=== PATIENT | male | born 1960 | race Caucasian/White ===

== ENCOUNTER 2019-06-22 15:00 | Outpatient (RCR) | payer BC, SELFPAY ==
[2019-06-04 12:24] VITALS: PULSE 63
--- NOTE | 2019-06-24 09:44 | PCCPR ---
Program is temporarily suspended due to COVID outbreak.
--- NOTE | 2019-07-01 13:04 | PCCPR ---
Spoke with Elfego he is currently working from home virtually. He has been using his elliptical 3 + times per wk as well as walking his dog several times per day. He has been doing some light upper body strength trng mostly biceps curls. However he started doing push ups starting with 15 then the next day 30. Initially he did not feel sore then he did so he has stopped doing this. Explained since he was not 3 months out of his open heart surgery would not recommend the push ups for now but to continue the free weights and slowly. He is also doing some set ups and stretching. Encouraged him also to verify with his [employer] on the push ups. Explained we wanted to send some exercise guideline info to him he preferred email.
--- NOTE | 2019-07-15 11:16 | PCCPR ---
Check in completed with patient. Exercising regularly. No questions or concerns at this time. Will continue to follow weekly.
--- NOTE | 2019-07-29 13:58 | PCCPR ---
Weekly update call-informed patient of continued closure through the month of July due to the extension of the prison in [facility] order. No questions at this time.
--- NOTE | 2019-08-13 13:03 | PCCPR ---
Starting Bi-Weekly Calls. Spoke with patient. No questions or concerns at this time.
== END 2019-06-22 23:59 | disposition home or self-care (01) ==
LOC: ANHCPREHAB 15:00
PROVIDERS: PCP Family Medicine
DX: Z95.1 Presence of aortocoronary bypass graft (principal); R06.09 Other forms of dyspnea
CPT/HCPCS: 93798

== ENCOUNTER 2019-08-16 16:08 | Emergency (ER) | payer BC, SELFPAY ==
--- NOTE | 2019-08-16 16:16 | ED.WOUNDLAC ---
HPI - Wound/Laceration General Chief Complaint: Wound/Laceration Stated Complaint: cut left thumb Time Seen by Provider: 08/16/19 16:16 Source: patient and RN notes reviewed History of Present Illness HPI narrative: Patient is a 59-year-old male that presents the urgent care with complaints of a laceration to the left thumb. Patient states that he was using a box knife to cut tile, and it slipped and cut his left thumb. Patient is not up-to-date on his tetanus shot. Patient denies any other acute complaints or injuries. No acute distress noted. Patient read the plan of care. Related Data Home Medications Medication Instructions Recorded Confirmed aspirin 81 mg tablet,delayed 81 mg PO DAILY 03/20/19 08/16/19 release Allergies Allergy/AdvReac Type Severity Reaction Status Date / Time contrast Dye Allergy Unknown Hives Uncoded 08/16/19 16:26 Review of Systems Review of Systems: Narrative: CONSTITUTIONAL: Denies fever, chills, or sweats. EYES: Denies visual changes, redness, or discharge. ENT: Denies rhinorrhea, congestion, sore throat, or otalgia. CARDIOVASCULAR: Denies chest pain, palpitations, or edema. RESPIRATORY: Denies cough or dyspnea. GASTROINTESTINAL: Denies abdominal pain, nausea, vomiting, or diarrhea. GENITOURINARY: Denies dysuria or hematuria. SKIN: Reports of a laceration to the left thumb MUSCULOSKELETAL: Denies back pain, joint pain, or myalgia. NEUROLOGIC: Denies headache, numbness, or weakness. All other systems reviewed are negative, except as documented in HPI. [facility] Past Medical History Medical History (Updated 08/16/19 @ 16:39 by GAURI Alvares) Essential hypertension Hyperlipidemia Family History Family History (Updated 06/04/19 @ 11:44 by Carie Alfaro RN) Father Heart disease Mother , CHF Heart disease Sibling Hypertension Mother Family history of malignant neoplasm of uterus Congestive heart failure Father Family history of coronary artery disease Congestive heart failure Cerebrovascular accident Social History Social History (System 03/12/19 @ 08:08 by Madelyn Melendez) Smoking status: Never smoker Second hand tobacco smoke exposure: No Alcohol intake: current Drinks per week: 2 Comments At the time of my signature, I reviewed and agree with the nursing past medical, surgical, social, and family history. There is no relevant family history pertinent to the patient complaint. Exam Narrative: Exam Narrative: GENERAL: This is a well-nourished, well-developed patient, in no apparent distress. HEAD: normocephalic, atraumatic. EYES: PERRL. Sclera clear/white. Vision is grossly intact. EARS: External ears normal NOSE: External nose normal with no obvious nasal discharge, nares without redness, no rhinorrhea. THROAT: Mucous membranes moist NECK: Neck supple SKIN: 1 cm linear laceration to the ulnar aspect of the left thumb involving the rim of the cuticle without nail damage. Warm, intact with no suspicious lesions or rash, good texture and turgor. NEURO: awake, alert, and oriented to person, place and time. There were no obvious focal neurologic abnormalities. EXTREMITIES: No clubbing, cyanosis, or edema. Capillary refill the left upper extremity less than 2 seconds with positive strong radial pulse Course Vital Signs Vital signs: Vital Signs Temperature 99.0 F 08/16/19 16:25 Pulse Rate 100 08/16/19 16:25 Respiratory Rate 18 08/16/19 16:25 Blood Pressure 136/89 08/16/19 16:25 Pulse Oximetry 98 08/16/19 16:25 Temperature 99.0 F 08/16/19 16:25 Pulse Rate 100 08/16/19 16:25 Respiratory Rate 18 08/16/19 16:25 Blood Pressure 136/89 08/16/19 16:25 Pulse Oximetry 98 08/16/19 16:25 Reviewed Procedures Laceration Laceration 1: Site: upper extremity Side (If applicable): left Description: linear Local Anesthetic: none Pre-repair: irrigated ====== Skin Le
[2019-08-16 16:25] VITALS: BP 136/89; PULSE 100; RESP 18; TEMP 37.2; O2SAT 98
[2019-08-16] MEDS: TETANUS,DIPHTHERIA,AC PERTUSSIS ADULT 0.5 ML (ADACEL) IM (16:36)
--- NOTE | 2019-08-16 16:59 | PC.NURSE ---
No reaction noted from Tdap injection.
== END 2019-08-16 17:00 | disposition home or self-care (01) ==
PROVIDERS: Emergency Provider Nurse Practitioner Family; PCP Family Medicine
DX: S61.012A Laceration without foreign body of left thumb without damage to nail, initial encounter (principal); Z23 Encounter for immunization; E78.5 Hyperlipidemia, unspecified; I10 Essential (primary) hypertension; W26.0XXA Contact with knife, initial encounter
CPT/HCPCS: 12001; 90471; 90715; 99212; G0463

== ENCOUNTER 2019-10-27 15:30 | Outpatient (RCR) | payer BC, SELFPAY ==
--- NOTE | 2019-10-07 14:43 | PTOPEVAL ---
PHYSICAL THERAPY EVALUATION AND PLAN OF CARE Thank you for referring Elfego Dumas to [facility]. I recommend Elfego participate in PT 1x/week for 2-3weeks. Please review, sign, date and return this plan of care MARY. I agree with and certify that the following plan of care is medically necessary. Referring Physician Date Attending Provider: Leonides Guardado MD Evaluation Diagnosis right knee pain Onset 5 years Subjective Information reports 5 years of pain; Query Text:As Reported By Patient/ reports pain was exacerbated Family by cardiac rehab (discharged). Phyisican suspects meniscal tear. Participating in PT first before getting an MRI. Self Report Pain Assessment Right Knee(s) Reported Pain Level 2 Pain Description Aching,Sharp Pain Frequency Chronic,Intermittent Lowest Pain Intensity 0 Greatest Pain Intensity 6 Pain Aggravating Factors Walking Other Pain Aggravating Factors driving Hip Strength Left Hip Flexion Strength 5 Normal Hip Extension Strength 4- Good - Hip Abduction Strength 4- Good - Right Hip Flexion Strength 5 Normal Hip Extension Strength 5 Normal Hip Abduction Strength 5 Normal Knee Strength Left Knee Flexion Strength 5 Normal Knee Extension Strength 5 Normal Right Knee Flexion Strength 5 Normal Knee Extension Strength 5 Normal Knee Strength Comments functional squat: thighs below parallal, but right foot turns out and right knee falls into valgus Posture Posture Standing Position Posture Evaluation View Anterior Hip Posture (L) Neutral,(R) Neutral Knee Posture (L) Neutral,(R) Neutral Ankle/Foot Posture (R) Forefoot Eversion Additional Posture Comments history of right tibia and fibula fracture 20 years ago that was set with a mild external rotation; if he corrects his foot posture his hip internally rotates Special Tests-Lower Extremity Knee Special Tests Anterior Drawer Negative Right Pivot-Shift Negative Right Valgus Stress Test Knee at 30 Degrees Negative Right Varus Stress Test Knee at 30 Degrees Negative Right Zehra's Positive Right Thessaly's Test Positive Right PT Clinical Summary Elfego is a 59 yo male presenting to outpatient p
--- NOTE | 2019-10-20 16:05 | PCPTNOTE ---
Patient did not show up for scheduled appointment this date.
--- NOTE | 2019-10-27 16:10 | PTOPEVAL ---
PHYSICAL THERAPY DISCHARGE NOTE Thank you for referring Elfego Dumas to [facility]. Please review, sign, date and return this plan of care MARY. I agree with and certify that the following plan of care is medically necessary. Referring Physician Date Attending Provider: Leonides Guardado MD Discharge Diagnosis right knee pain Onset 5 years Subjective Information Reports no changes in symptoms Query Text:As Reported By Patient/ . performs HEP regularly. Is Family able to participate in daily activities. Self Report Pain Assessment Right Knee(s) Reported Pain Level 2 Pain Description Aching,Sharp Pain Aggravating Factors Walking Hip Strength Left Hip Flexion Strength 5 Normal Hip Extension Strength 5 Normal Hip Abduction Strength 5 Normal Right Hip Flexion Strength 5 Normal Hip Extension Strength 5 Normal Hip Abduction Strength 5 Normal Knee Strength Left Knee Flexion Strength 5 Normal Knee Extension Strength 5 Normal Right Knee Flexion Strength 5 Normal Knee Extension Strength 5 Normal Knee Strength Comments functional squat: thighs below parallal, but right foot turns out and right knee falls into valgus single leg squat: severe right knee valgus Posture Standing Position Posture Evaluation View Anterior Hip Posture (L) Neutral,(R) Neutral Knee Posture (L) Neutral,(R) Neutral Ankle/Foot Posture (R) Forefoot Eversion Additional Posture Comments history of right tibia and fibula fracture 20 years ago that was set with a mild external rotation; if he corrects his foot posture his hip internally rotates PT Clinical Summary Elfego has participated in physical therapy. He is independent with HEP. He reports no changes in symptoms. I recommend d/c from PT at this time. PT Services Indicated No Rehabilitation Potential Fair Potential Barriers to Goal Achievements None Support Requirements For Optimal None Forbes Patient/Caregiver Informed of Benefits/ Yes Risks of Rehabilitation Patient/Caregiver Participated in Plan Yes of Care Lito
== END 2019-10-28 10:50 | disposition home or self-care (01) ==
LOC: ANHPT 15:30
PROVIDERS: PCP Family Medicine; Visit Provider Orthopaedic Surgery
DX: M23.91 Unspecified internal derangement of right knee (principal)
CPT/HCPCS: 97110; 97161

== ENCOUNTER → 2019-11-06 08:30 | Outpatient (CLI) | payer BC, SELFPAY ==
--- NOTE | ~2019-11-06 | MR_ITS ---
EXAMINATION: MR knee RT wo con DATE: 11/06/2019 09:24 INDICATION: Internal derangement of the right knee with generalized right knee pain TECHNIQUE: Magnetic resonance imaging (MRI) of the right knee was performed without intravenous contr ast. Sequences included coronal PD-weighted FSE, coronal PD-weighted FS FSE, sagittal T2-weighted FS E, sagittal PD-weighted FS FSE and axial PD weighted fat saturated FSE. COMPARISON: None. FINDINGS: Medial compartment: Medial meniscal tear with a longitudinal oblique tear plane extending to the inferior articular surfa ce of the body and posterior horn. There is additional linear increased signal extending from the tea r plane into the substance but not definitively contacting the articular surface of the posterior bod y and at the lateral aspect of the posterior horn equivocal for complex tear with additional tear karan obdulia. Deep chondral fissure with subtle irregularity to the underlying articular cortex at the lateral side of the central weightbearing medial femoral condyle. Lateral compartment: Lateral meniscus is normal. Chondral fissuring with increased signal extending through greater and 50 % the cartilage thickness and without degenerative subchondral changes along the posterior margin of the lateral tibial plateau underlying the posterior horn of the lateral meniscus. Patellofemoral compartment: Chondral fissuring and fibrillation with crabmeat-like appearance at the cephalad aspect of the apica l ridge and immediately adjacent medial patellar facet with underlying subarticular edema. More shall ow fissuring along portions of the lateral patellar facet. Trochlear cartilage is normal. Ligaments and tendons: Anterior and posterior cruciate ligaments are normal. The medial collateral ligament and fibular salvador ateral ligament complex are normal. The extensor mechanism is normal. The visualized medial and later al hamstring tendons as well as the iliotibial band are normal. Fluid: Physiologic amount of fluid in the joint space. No loose osteochondral bodies identified. Osseous/other: Normal marrow signal aside from the previous noted small region of patellar subarticular edema. No fr acture or pathologic marrow replacing process. Small focus of susceptibility artifact centered near t he skin surface at the anterior tibial tuberosity. IMPRESSION: 1. Tear of the body and posterior horn of the medial meniscus, potentially complex. 2. Mild tricompartmental osteoarthritis with small regions of high-grade chondromalacia at the patell a and along the weightbearing medial femoral condyle and moderate grade chondromalacia along the post erior lateral tibial plateau. Reviewed, dictated and finalized at location A. IMPRESSION: 1. Tear of the body and posterior horn of the medial meniscus, potentially comp flip. 2. Mild tricompartmental osteoarthritis with small regions of high-grade chondr omalacia at the patella and along the weightbearing medial femoral condyle and moderate grade chondromalacia along the posterior lateral tibial plateau.
== END ==
PROVIDERS: PCP Orthopaedic Surgery; Visit Provider Orthopaedic Surgery
DX: M23.91 Unspecified internal derangement of right knee (principal); S83.241A Other tear of medial meniscus, current injury, right knee, initial encounter; M17.11 Unilateral primary osteoarthritis, right knee; M94.261 Chondromalacia, right knee
CPT/HCPCS: 73721

== ENCOUNTER 2019-12-02 02:05 | Outpatient (CLI) | payer BC, SELFPAY ==
[2019-12-02 20:48] LABS: SARS-CoV-2 RNA PCR Negative
== END 2019-12-02 02:06 | disposition home or self-care (01) ==
LOC: ANHCOVIDDT 02:06
PROVIDERS: PCP Family Medicine; Visit Provider Orthopaedic Surgery
DX: Z01.812 Encounter for preprocedural laboratory examination (principal); Z20.828 Contact with and (suspected) exposure to other viral communicable diseases
CPT/HCPCS: 87635; C9803; U0003

== ENCOUNTER 2019-12-04 01:35 | Day surgery (SDC) | payer BC, SELFPAY ==
[2019-11-25 11:05] VITALS: BMI 23.7
[2019-12-04] VITALS (7 sets, daily range): BP systolic 100–132; BP diastolic 75–99; PULSE 75–81; RESP 7–18; TEMP 36.6–37; O2SAT 95–100
--- NOTE | 2019-12-04 07:41 | WPDHPUPDATE1 ---
History and Physical Update Update Date/Time: 12/04/19 07:41 History and Physical has been reviewed, including an updated exam of the patient. There are NO changes in the patient's condition. Risks, benefits, and alternatives have been discussed and questions answered. Patient agrees to proceed with procedure.
--- NOTE | 2019-12-04 13:49 | WPDANESEPPF ---
Anes - Initial Pre Proc Eval Procedure: Operation Date: 12/04/19 15:30 Proposed Procedures p Right Knee Arthroscopy, Partial Medial Meniscectomy, Proceed As Indicated - Leonides Guardado MD Date/Time: 12/04/19 13:49 Surgeon: Leonides Guardado MD Pre Op Diagnosis: Right Knee Medial Meniscus Tear Patient Data Age: 59 Gender: M Height: 5 ft 8 in Weight: 70.76 kg Allergies Allergy/AdvReac Type Severity Reaction Status Date / Time contrast Dye Allergy Unknown Hives Uncoded 11/25/19 11:06 Home Medications Medication Instructions Recorded Confirmed Type aspirin 81 mg tablet,delayed 81 mg PO DAILY 03/20/19 12/04/19 History release atorvastatin 80 mg tablet 80 mg PO DAILY #30 tablet 09/01/19 12/01/19 Rx pantoprazole 40 mg tablet,delayed 40 mg PO QAM #90 tablet 09/02/19 12/04/19 Rx release Patient hx anesthesia problems: none Family hx anesthesia problems: none PMFSH Past Medical History Medical History (Updated 12/04/19 @ 13:50 by Jerald Mercer MD) CAD (coronary artery disease) 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 Essential hypertension Hyperlipidemia Normal colonoscopy (~2015) Surgical History Surgical History H/O wrist surgery History of quadruple bypass (~05/2019) Family History Family History Father Heart disease Mother , CHF Heart disease Sibling Hypertension Mother Family history of malignant neoplasm of uterus Congestive heart failure Father Family history of coronary artery disease Congestive heart failure Cerebrovascular accident Social History Social History Smoking status: Never smoker Second hand tobacco smoke exposure: No Alcohol intake: current Drinks per week: 3 Spiritual care concerns: No Anes - Eval Final PreProcedure Day of Procedure 12/04/19 13:49 Patient weight: normal Heart: regular rate and rhythm Lungs: clear to auscultation Airway: Mallampati scale class II Neurological: alert and oriented Last oral intake: >/= 8 hours ASA classification: III Emergent: no Anesthetic plan: proceed Anesthesia type and monitoring: general LMA and standard monitoring Informed Consent: The patient's anesthetic plan and its attendant risks and benefits were discussed with the patient/family/POA. Questions were solicited and answers provided to the satisfaction of the patient/family/POA.
[2019-12-04] MEDS: LACTATED RINGERS 1,000 ML 30 ML IV CONT (14:12)
[2019-12-04] MEDS: ACETAMINOPHEN 500 MG TABLET 1000 MG PO (14:14)
[2019-12-04] MEDS: KETOROLAC 15 MG/ML VIAL (*BKC) IV PUSH (14:14)
[2019-12-04] MEDS: ceFAZolin 2 GM/D5W 50 ML 2 GM/50 ML BAG IVPB (14:29)
[2019-12-04] MEDS: BUPIVACAINE/EPINEPHRINE 0.5% 30 ML VIAL INFILTRATE (14:56)
--- NOTE | 2019-12-04 15:57 | PM.PROC ---
Procedure Note - Detailed Date of procedure: 12/04/19 Pre-op diagnosis: Right Knee Medial Meniscus Tear Medial meniscus tear. Post-op diagnosis: same Procedure performed: Arthroscopic partial medial meniscectomy. Description of procedure: Extensive posterior horn and posterior medial meniscus tear. Consistent with the MRI findings. Also small sub cm partial-thickness chondral defect on the lateral aspect of the medial femoral condyle. This was lightly debrided. The lateral compartment and patellofemoral compartments appeared essentially normal. No other loose bodies or abnormal findings. Anesthesia: GETA Surgeon: Leonides Guardado MD Estimated blood loss (mL): 5 Complications: None Condition: stable Disposition: PACU Findings: Procedure Details: The patient was identified and the surgical site confirmed and signed in the preoperative holding area. Antibiotics were started per protocol. She was brought to the operative room and transferred to the OR table. A general anesthetic was administered. Supine position with the operative lower extremity position in the leg bryan after placement of a well padded tourniquet. The leg support was lowered and the contralateral limb was supported with a soft bolster. The knee was prepped and draped in the usual sterile fashion. A time-out was performed. The portal sites were marked and infiltrated with 0.5% Marcaine 20 mL. The limb was exsanguinated and the tourniquet inflated to 300 mL Hg. Standard inferolateral and inferomedial portals were established. Inflow was obtained with the saline pump. The camera was introduced. Diagnostic inspection of the joint was accomplished. The meniscus was debrided with the arthroscopic shaver and punches until stable. The radiofrequency probe was used to stabilize the posterior rim. A small defect on the medial femoral condyle was treated with light debridement chondroplasty. The arthroscopic instruments were removed. The tourniquet released and wounds closed with subcutaneous 3-0 Monocryl absorbable suture. Steri strips and a sterile dressing were applied. A light elastic wrap was placed. The patient was extubated and brought to the recovery room in stable condition.
== END 2019-12-04 17:05 | disposition home or self-care (01) ==
PROVIDERS: PCP Family Medicine; Visit Provider Orthopaedic Surgery
PROC: (CPT 29870; principal; 2019-12-04 15:30)
DX: M23.221 Derangement of posterior horn of medial meniscus due to old tear or injury, right knee (principal); M23.91 Unspecified internal derangement of right knee; I25.10 Atherosclerotic heart disease of native coronary artery without angina pectoris; Z95.1 Presence of aortocoronary bypass graft; I10 Essential (primary) hypertension; E78.5 Hyperlipidemia, unspecified; K21.9 Gastro-esophageal reflux disease without esophagitis; Z79.82 Long term (current) use of aspirin; Z79.899 Other long term (current) drug therapy; Z91.041 Radiographic dye allergy status
CPT/HCPCS: 29881; A9270; J0690; J1100; J1885; J2250; J2405; J2704; J3010; J7120

== ENCOUNTER 2020-01-06 16:00 | Outpatient (RCR) | payer BC, SELFPAY ==
--- NOTE | 2019-12-10 09:18 | PTOPEVAL ---
Thank you for referring Elfego Dumas to [facility].? The patient is scheduled to be seen for therapy? 2 x/week for 4 weeks. Please review, sign, date and return this plan of care MARY. I agree with and certify that the following plan of care is medically necessary. Referring Physician Date Admitting Provider: Attending Provider: Leonides Guardado MD Referring Provider: *PT Outpatient Evaluation Start: 12/10/19 08:01 Freq: Status: Active Protocol: Document 12/10/19 08:01 [facility] (Rec: 12/10/19 08:45 [facility] [id number]) Therapy Assessment Status Assessment Status Assessment Status Evaluation Outpatient Past Medical History Past Medical History Source of Past Medical History Recalled from Previous Visit, Confirmed with Patient/Family Cardiovascular History Hx Cardiac Catheterization Yes Hx Coronary Artery Bypass Graft Yes: 4 VESSEL 04/22/19 Hx Coronary Artery Disease Yes Hx Hypercholesterolemia Yes Hx Other Cardiac Disorders Yes: 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 Subjective Information Pt believes initial injury Query Text:As Reported By Patient/ stemmed from old injury where Family he had a tib/fib fracture >10 years ago. Pain at R knee has gotten progressively worse over past 5 years. Had one month of PT 2 months ago that didn't seem to help. Underwent R arthroscopic partial medial menisectomy on 12/04/19. Stopped using crutches this week and continues to ice R knee 2x/day. Working from
--- NOTE | 2020-01-06 16:27 | PTOPEVAL ---
PHYSICAL THERAPY DISCHARGE NOTE Thank you for referring Elfego Dumas to [facility].? Please review, sign, date and return this plan of care MARY. I agree with and certify that the following plan of care is medically necessary. Referring Physician Date Attending Provider: Leonides Guardado MD Discharge Diagnosis S/p R partial medial menisectomy Subjective Information Elfego reports that the right Query Text:As Reported By Patient/ knee is doing well. States Family that knee flexion has a little pull at end range, but he has not been testing it or working it. Otherwise he is very comfortable with HEP and continuing to strengthen RLE. States that he really has more trouble with the left leg feeling like there is a nerve pain that goes down the side of the leg. Self Report Self Report Pain Level 0 Pain Score Lower Extremity Range of Motion Knee Range of Motion Right Knee Flexion Range of Motion - Active 122 Knee Extension Range of Motion - Active 0 Query Text: Knee Range of Motion Comments No pain with AROM. Stiffness noted at 90 degrees. No extension lag present. Left Knee Flexion Range of Motion - Active 140 Knee Extension Range of Motion - Active 0 Query Text: Lower Extremity Muscle Strength Testing Hip Strength Right Hip Flexion Strength 5 Normal Hip Extension Strength 5 Normal Hip Abduction Strength 5 Normal Left Hip Flexion Strength 5 Normal Hip Extension Strength 5 Normal Hip Abduction Strength 4+ Good + Knee Strength Right Knee Flexion Strength 5 Normal Knee Extension Strength 5 Normal Knee Strength Comments single leg sit<>stand from standard height chair - performs well but states it is more difficult on right than the left Left Knee Flexion Strength 5 Normal Knee Extension Strength 5 Normal Ankle Strength Right Ankle Dorsiflexion Strength 5 Normal Ankle Plantarflexion Strength 5 Normal Ankle Strength Comments 20/20 unilateral heel raises Balance Assessment 5 Time Sit to Stand Time in Seconds 13 Stair Climbing Assessment Stair Climbing Assessment Stair Climbing Assistive Devices None Technique Alternating Steps Stair Climbing Direction
== END 2020-01-07 11:06 | disposition home or self-care (01) ==
LOC: ANHPT 16:00
PROVIDERS: PCP Family Medicine; Visit Provider Orthopaedic Surgery
DX: M23.203 Derangement of unspecified medial meniscus due to old tear or injury, right knee (principal)
CPT/HCPCS: 97110; 97161

== ENCOUNTER 2020-01-28 08:50 | Outpatient (RCR) | payer BC, SELFPAY ==
--- NOTE | 2020-01-28 10:01 | PTOPEVAL ---
PHYSICAL THERAPY EVALUATION AND PLAN OF CARE Thank you for referring Elfego Dumas to [facility].? The patient is scheduled to be seen for therapy? 2-4x/week for 4 weeks. Please review, sign, date and return this plan of care MARY. I agree with and certify that the following plan of care is medically necessary. Referring Physician Date Attending Provider: Leonides Guardado MD Evaluation Diagnosis lumbar radiculapathy Subjective Information Reports left lower leg pain Query Text:As Reported By Patient/ and tingling that started Family prior to right knee surgery. right knee surgery recovered well. He was provided with steroid pack for the left leg pain that immediately helped to reduce pain. Tingling has persisted, but pain is significantly reduced. Steroid pack is over and he is taking anti-inflammatory. The pain is mildly increasing but nothing like it was prior to steroid. States he can now run up and down stairs and can do a lot more activity than before. Self Report Pain Assessment Left Lower Leg(s) Reported Pain Level 2 Pain Description Numbness,Tingling Pain Score Pain Score 2: Self Report Lumbar ROM Lumbar Flexion (0-90) 60 Query Text:Active in Degrees Lumbar Extension (0-40) 32 Query Text:Active in Degrees Lateral Rotation Right (0-45) 30 Query Text:Active in Degrees Lateral Rotation Left (0-45) 30 Query Text:Active in Degrees Lumbar Comments flexion and right rotation increased symptoms in left lower leg Lower Extremity Muscle Strength Testing General Lower Extremity Strength Reason Not Measured WFL/Left,WFL/Right Gross Lower Extremity Strength grossly 4+ to 5/5 bilaterally Palpation Assessment Palpation Palpation moderate hypomobility of L4-5, S1 to posterior-anterior mobilization; prone on hands with overpressure reproduced left lower limb symptoms Special Test-Spine Lumbar Spine Special Tests Crossed Straight Leg Raise Test Negative Right,Negative Left Straight Leg Raise Test Negative Right,Negative Left Slump Test Negative Right,Negative Left Prone Instability Spinal Test Negative Right,Negative Left Myotomes
--- NOTE | 2020-02-11 17:32 | PCPTNOTE ---
Patient did not show up for scheduled appointment this date. Called and left message asking him to call back as he has no further appointments scheduled.
--- NOTE | 2020-02-17 13:15 | PCPTNOTE ---
PHYSICAL THERAPY DISCHARGE NOTE Attending Provider: Leonides Guardado MD Patient:Elfego Dumas Date of :1960 Patient has not returned for any further treatments since 01/28/2020. Spoke with Elfego on the phone regarding his condition and care. He states that he continues to improve slowly. He feels better than he did several weeks ago and everything is going in the right direction. He feels confident with current home exercise program and with continuing prescribed anti-inflammatories. He followed up with physician in several weeks. At this time we will discharge him from our care. If further care is required we will be happy to work with him again. Thank you for referring this patient to [facility]. Please review, sign, date and return this discharge summary MARY. I have been updated about the patient's current status and I agree with discharge from the above service at this time. Referring Physician Date
== END 2020-02-18 08:46 | disposition home or self-care (01) ==
LOC: ANHPT 08:50
PROVIDERS: PCP Family Medicine; Visit Provider Orthopaedic Surgery
DX: M54.16 Radiculopathy, lumbar region (principal)
CPT/HCPCS: 97110; 97161

== ENCOUNTER 2022-03-08 14:00 | Outpatient (RCR) | payer BC, SELFPAY ==
--- NOTE | 2022-01-30 11:37 | PTOPEVAL1 ---
Assessment and note entered by Alden Mckeon, PT Evaluation Information Assessment Status Evaluation Diagnosis R lower leg pain and L shoulder pain Onset lower leg pain 3 months ago Subjective Information Patient reports for the last three months he has been have R lower leg pain for three months with increased pain while carrying objects especially up and down stairs, along with when moving the leg after keeping it immobile, and single limb stance . The leg is his bigger issue. Patient also reports pain similar to when he had a rotator cuff tear in the L shoulder especially in over head motion and reports no strength when his arm is over shoulder height. Reported Pain Level Pain Score 3,1: Self Report Assessment PT Clinical Summary Elfego is a 62 year old male coming into the clinic for both R lower leg pain and L shoulder pain. The R lower leg pain is more pressing per the patient. Patient has slight external rotation of the R lower leg secondary to an accident and fx 20 plus years ago. Patient also has pain with single limb stance of the RLE and extra weight bearing on it. Patient main concern with the L shoulder is pain with overhead activity and a reported weakness with the arm above shoulder height. Physical therapy will use stretching and manual therapy to help with calf pain then work on ankle strengthening to help keep calf in better alignment. The left shoulder should benefit from strengthening of the rotator cuff and scapular stabilizers. Plan of Care Interventions Electrical Stimulation,Gait Training,Hot Pack/Cold Pack,Manual Therapy,Neuro Re-education,Patient/ Caregiver Education,Therapeutic Activities, Therapeutic Exercise,Ultrasound PT Services Indicated Yes Treatment Frequency and 1-2x/wk for 4 weeks Duration These treatments will address the objective and functional deficits as defined above. The patient will be advanced safely and appropriately in order for the patient to progress towards his/her prior level of function. Additional exercises will be introduced and as well as a comprehensive home exercise program upon discharge, if needed, ?to ensure carryover of functional gains achieved in the clinic. This treatment plan has been reviewed and agreement upon by the patient.
--- NOTE | 2022-02-19 15:09 | PCPTNOTE ---
Patient called & cancelled scheduled appointment this date due to having to watch his grandchildren.
--- NOTE | 2022-03-08 14:33 | PTOPPROG ---
Assessment and note entered by Emelyn Jacome, PT, DPT Evaluation Information Assessment Status Progress Diagnosis R lower leg pain and L shoulder pain Onset lower leg pain 3 months ago Subjective Information Pt states overall he feels like his leg has improved a little but he states his shoulder is worse than it was when he started. He states his leg is no longer aching at night and is making progress. He states his shoulder is more painful and is getting more sharp pains than prior to starting therapy. He reports 0/10 pain when his shoulder is in neutral and resting on his stomach, he rates it at a 8/10 when moving into certain positions. Assessment PT Clinical Summary Elfego presents to therapy today for his progress report following 7 visits of skilled therapy to treat his R leg and L shoulder pain. Today he demonstrates improved strength and decreased pain in his R lower leg. He reports his leg has almost returned to normal. He demonstrates decreased active shoulder strength and ROM as well as increase pain with active motions. Continuation of skilled physical therapy services are indicated to address decreased shoulder strength and ROM, and to improve shoulder pain. Pt would like to consult with an orthopaedic doctor prior to preceding with therapy. Plan of Care Interventions Electrical Stimulation,Gait Training,Hot Pack/Cold Pack,Manual Therapy,Neuro Re-education,Patient/ Caregiver Educati,Therapeutic Activities, Therapeutic Exercise,Ultrasound PT Services Indicated Yes Treatment Frequency and to follow up with ortho prior to prodecing Duration These treatments will address the objective and functional deficits as defined above. The patient will be advanced safely and appropriately in order for the patient to progress towards his/her prior level of function. Additional exercises will be introduced and as well as a comprehensive home exercise program upon discharge, if needed, ?to ensure carryover of functional gains achieved in the clinic. This treatment plan has been reviewed and agreement upon by the patient.
--- NOTE | 2022-04-13 14:30 | PTOPDC ---
Assessment and note entered by Emelyn Jacome, PT, DPT Evaluation Information Assessment Status Discharge - Pt Not Present Diagnosis R lower leg pain and L shoulder pain Onset lower leg pain 3 months ago Subjective Information Pt was placed on hold from therapy while waiting to follow up with ortho. Per ortho note, pt has a new order and will be completing therapy elsewhere . Assessment PT Clinical Summary Elfego completed 8 visits of therapy from 01/30/22 to 03/08/22. He will be discharged at this time.
== END 2022-04-13 14:46 | disposition home or self-care (01) ==
LOC: ANHGOSHPT 14:00
PROVIDERS: PCP Family Medicine; Visit Provider Physician Assistant Medical
DX: M25.512 Pain in left shoulder (principal); M79.661 Pain in right lower leg; R29.898 Other symptoms and signs involving the musculoskeletal system
CPT/HCPCS: 97110; 97112; 97140; 97161

== ENCOUNTER 2022-04-03 15:03 | Outpatient (CLI) | payer BC, SELFPAY ==
--- NOTE | ~2022-04-03 | MR_ITS ---
MRI of the left shoulder Technique: Axial proton-density fat-sat images, coronal proton density fat-sat and T2 fat-sat images, and sagittal T1-weighted and T2 fat-sat images were acquired. Clinical History: Pain Findings: There is moderate degenerative changes AC joint. Coracoclavicular, coracoacromial, and marisol cohumeral ligaments are intact. There is focal moderate supraspinatus tendinosis, without partial or full-thickness tear. Infraspinat us tendon is intact, without partial or full-thickness tear. Subscapularis tendon is intact. Tendon o f the long head of the biceps is intact. Labral evaluation is suboptimal due to mild motion artifact. Questionable degenerative tearing of the posterior labrum at the equator. Possible some subtle superior labral tear. Inferior glenohumeral ligament is intact. Minimal glenohumeral joint effusion present. No significant degenerative change present. No fluid distention of the subacromial/subdeltoid bursa. No muscle atro phy or edema. Impression: Focal moderate supraspinatus tendinosis. No partial or full-thickness rotator cuff tear. Suboptimal labral evaluation due to motion artifact. Questionable tearing superior labrum and posteri or labrum at the equator. Moderate AC joint degenerative change. Reviewed, dictated and finalized at location . [employer] ANALYST Impression: Focal moderate supraspinatus tendinosis. No partial or full-thickness rotator c uff tear. Suboptimal labral evaluation due to motion artifact. Questionable tearing super ior labrum and posterior labrum at the equator. Moderate AC joint degenerative change.
== END 2022-04-03 15:04 | disposition home or self-care (01) ==
PROVIDERS: PCP Family Medicine; Visit Provider Orthopaedic Surgery
DX: M25.512 Pain in left shoulder (principal); M75.92 Shoulder lesion, unspecified, left shoulder
CPT/HCPCS: 73221

== ENCOUNTER 2022-06-04 08:00 | Outpatient (RCR) | payer BC, SELFPAY ==
[2022-04-23 08:56] VITALS: BP_SYST 65
--- NOTE | 2022-04-23 09:51 | PTOPEVAL1 ---
Assessment and note entered by Emelyn Jacome, PT, DPT Evaluation Information Assessment Status Evaluation Diagnosis L shoulder pain Onset ~ 5 month Subjective Information Pt states he returned to an ortho doctor who diagnosis him with shoulder tendonitis. He states he was given an injection for the pain and this has helped. He states in the last, therapy made his shoulder worse but he is back to try again. Shoulder MRI shows supraspinatus tendinosis and possible posterior labrum involvement. He reports 0/10 at rest, and 9/[address]. Reported Pain Level Pain Score 0: Self Report Assessment PT Clinical Summary Elfego presents to therapy today for his initial evaluation with a diagnosis of a L shoulder lesion . His MRI demonstrations supraspinatus tendinosis and possible posterior labral involvement. Today he demonstrates decreased active shoulder flexion ~ 130 deg and active abduction ~60 deg, both limited by pain. Strength is decreased compared to his uninvolved side at well, also d/t pain. During active ROM he demonstrates a poor scapulohumeral rhythm. There is increased point tenderness of the L medial scapular border likely increasing his symptoms. Skilled physical therapy services are indicated to address the deficits noted above, to manage pain, and to return to baseline function. Plan of Care Interventions Electrical Stimulation,Hot Pack/Cold Pack,Manual Therapy,Neuro Re-education,Patient/Caregiver Educati,Therapeutic Activities,Therapeutic Exercise PT Services Indicated Yes Treatment Frequency and 1x/wk for 6 wks Duration These treatments will address the objective and functional deficits as defined above. The patient will be advanced safely and appropriately in order for the patient to progress towards his/her prior level of function. Additional exercises will be introduced and as well as a comprehensive home exercise program upon discharge, if needed, ?to ensure carryover of functional gains achieved in the clinic. This treatment plan has been reviewed and agreement upon by the patient.
--- NOTE | 2022-05-22 09:52 | PCPTNOTE ---
Patient called & cancelled scheduled appointment this date due to patient being sick.
[2022-06-04 08:01] VITALS: BP_SYST 65
--- NOTE | 2022-06-04 08:27 | PTOPDC ---
Assessment and note entered by Emelyn Jacome, PT, DPT Evaluation Information Assessment Status Discharge Diagnosis L shoulder pain Onset ~ 5 month Subjective Information Pt states his shoulder is a little better. He states the only thing that helps is ice. He continues to have no pain at rest, but 8/10 when reaching over his head. He reports this pain is unchanged. Pt states he plans on continuing therapy on his own. Pt states he was been watching Send the [employer] videos to get ideas of new exercises. Reported Pain Level Pain Score 0: Self Report Assessment PT Clinical Summary Elfego presents to therapy today for his progress report following 5 visits of skilled therapy to treat his L shoulder pain. Today he demonstrates improvements in his shoulder strength and ROM but is still decreased from his R shoulder. He reports good compliance with his HEP and would like to be discharged at this time to continue therapy on his own. Plan of Care Interventions Electrical Stimulation,Hot Pack/Cold Pack,Manual Therapy,Neuro Re-education,Patient/Caregiver Educati,Therapeutic Activities,Therapeutic Exercise PT Services Indicated Yes Treatment Frequency and to be discharged Duration
== END 2022-06-04 10:49 | disposition home or self-care (01) ==
LOC: ANHGOSHPT 08:00
PROVIDERS: PCP Family Medicine; Visit Provider Physician Assistant Medical
DX: M75.82 Other shoulder lesions, left shoulder (principal)
CPT/HCPCS: 97110; 97112; 97140; 97161; 97530

== ENCOUNTER 2024-11-24 19:10 | Emergency (ER) | payer MEDICARE, SELFPAY ==
[2024-11-24 19:32] VITALS: BP 110/80; PULSE 70; RESP 16; TEMP 36.5; O2SAT 99
--- NOTE | 2024-11-24 19:56 | ED.WOUNDLAC ---
HPI - Wound/Laceration General Chief Complaint: Wound/Laceration Stated Complaint: Cut Finger Time Seen by Provider: 11/24/24 19:35 Source: patient Mode of arrival: ambulatory Limitations: no limitations History of Present Illness HPI narrative: Karine is a 64-year-old male patient presenting to the clinic today with complaints of a cut to the left index finger. He reports he accidentally cut his finger when he was cutting things with a razor blade. Has a skin avulsion that will not stop bleeding to the left lateral index finger without nail involvement. He takes daily aspirin. States this happened at 6:00 tonight and it continues to bleed. Tetanus is up-to-date. Related Data Home Medications ?Medication ?Instructions ?Recorded ?Confirmed ?Last Taken ?Type aspirin 81 mg tablet,delayed 81 mg PO DAILY 03/20/19 04/13/24 12/04/19 07:30 History release atorvastatin 80 mg tablet mg 11/24/24 Unknown History Allergies Allergy/AdvReac Type Severity Reaction Status Date / Time iohexol (From contrast - CT, Allergy Intermediate Hives Verified 11/24/24 19:36 X-RAY) Review of Systems Review of Systems: Pertinent positives per HPI. Patient denies any fever, chills, rash, headache, visual changes, dizziness, cough, shortness of breath, chest pain, palpitations, nausea, vomiting, diarrhea, constipation, abdominal pain, or any urinary issues. 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 Normal colonoscopy (~2015) Hyperlipidemia Essential hypertension Surgical History Surgical History History of meniscectomy of right knee (~12/04/19) History of quadruple bypass (~05/2019) H/O wrist surgery Family History Family History Father Heart disease Mother , CHF Heart disease Sibling Hypertension Mother Family history of malignant neoplasm of uterus Congestive heart failure Father Family history of coronary artery disease Congestive heart failure Cerebrovascular accident Social History Social History Smoking status: Never smoker Second hand tobacco smoke exposure: No Alcohol intake: current Drinks per week: 3 Substance use: never Substance use type: does not use Lack of Transportation: No Lack of Food: Never True Current Housing: I Have Housing Concerned About Future Housing: No Difficulty Paying Gas/Electric Bills: No Difficulty Paying for Meds: No Currently Unemployed: No Education: Bachelor's Degree Difficulty w/ Childcare or Family Care: No Spiritual care concerns: No Comments At the time of my signature, I reviewed and agree with the nursing past medical, surgical, social, and family history. There is no relevant family history pertinent to the patient complaint. Exam Narrative: General: Well-developed, well nourished, in no apparent distress Head: Normocephalic, atraumatic. Cardio: Regular rate and rhythm, s1 and s2 normal, no murmur appreciated. Resp: Clear to auscultation bilaterally, no rhonchi, rales, wheezing or rubs. Integumentary: [place], warm, and dry, 1.5 cm skin avulsion to the left lateral index finger without nail involvement, continues to actively bleed-bleeding controlled using Surgicel dressing Course Course Emergency Course: Portions of this record may have been created with voice recognition software. Level of Care: Express Care Visit Vital Signs Vital signs: Vital Signs Temperature 36.5 C 11/24/24 19:32 Pulse Rate 70 11/24/24 19:32 Respiratory Rate 16 11/24/24 19:32 Blood Pressure 110/80 11/24/24 19:32 Pulse Oximetry 99 11/24/24 19:32 Temperature 36.5 C 11/24/24 19:32 Pulse Rate 70 11/24/24 19:32 Respiratory Rate 16 11/24/24 19:32 Blood Pressure 110/80 11/24/24 19:32 Pulse Oximetry 99 11/24/24 19:32 Vital signs reviewed MDM - Wound/Laceration MDM Narrative Medical decision making narrative: At the time of visit patient is resting comfortably on the exam table. Patient appears to be nontoxic. Complaints of a cut to the left index finger. He reports he accidentally cut his finger when he was cutting things with a razor blade. Has a skin avulsion that will not stop bleeding to the left lateral index finger without nail involvement. He takes daily aspirin. States this happened at 6:00 tonight and it continues to bleed. Tetanus is up-to-date. Surgicel dressing ordered Procedures: Surgicel dressing applied to the wound and this controlled the active bleeding. Patient observed for 10-15 minutes after application and dressing and there is no active bleeding. Plan: Patient has skin avulsion laceration to the left index finger. Bleeding controlled in the clinic today using Surgicel dressing. Supportive measures were discussed with the patient and they voiced understanding discharge instructions and agrees to treatment plan. Return precautions reviewed Differential Diagnosis Differential diagnosis: Likely laceration, abscess, abrasion and avulsion of skin Discharge Plan Discharge Clinical Impression: Avulsion of skin of finger Patient Disposition: Home Condition: Stable Instructions: Antibiotic Form, Skin Avulsion (ED) Additional Instructions: Keep pressure on wound for 20 minutes Surgicel dressing was applied Do not remove Surgicel-allow it to fall off on its own-may trim up the area as it is falling off Keep wound clean and dry May wash daily using soap water Do not soak finger in any dirty water Watch for signs and symptoms of infection-fever, redness, swelling, increase in pain, purulent discharge, or streaking Follow-up for a wound check in 2-3 days Patient Language: Tajik Prescriptions: No Action atorvastatin 80 mg tablet aspirin 81 mg tablet,delayed release (DR/EC) 81 mg PO DAILY pantoprazole 40 mg tablet,delayed release (DR/EC) 40 mg PO QAM Qty: 90 3RF Follow-up/Referrals: Gretchen Ibrahim MD [Primary Care Provider, [facility]] Time of Disposition: 19:57 Quality NIHSS Nursing Documentation ED NIHSS nursing documentation: reviewed/agree
== END 2024-11-24 19:59 | disposition home or self-care (01) ==
PROVIDERS: Emergency Provider Nurse Practitioner Family; PCP Family Medicine
DX: S61.211A Laceration without foreign body of left index finger without damage to nail, initial encounter (principal); W26.8XXA Contact with other sharp object(s), not elsewhere classified, initial encounter; I25.10 Atherosclerotic heart disease of native coronary artery without angina pectoris; E78.5 Hyperlipidemia, unspecified; I10 Essential (primary) hypertension; Z95.1 Presence of aortocoronary bypass graft; Z82.49 Family history of ischemic heart disease and other diseases of the circulatory system; Z80.8 Family history of malignant neoplasm of other organs or systems; Z79.82 Long term (current) use of aspirin
CPT/HCPCS: 99212; G0463